=== PATIENT | female | born 1980 | race Caucasian/White ===

== ENCOUNTER 2016-08-09 14:09 | Emergency (ER) | payer OTHER ==
[2016-08-09 15:18] VITALS: BP 110/63
[2016-08-09] MEDS ORDERED: Ibuprofen TAB* 400 MG PO ONE (16:01)
--- NOTE | 2016-08-09 16:34 | RAD ---
Indication: Right rib pain after fall. Single view of the chest including dual energy PA views demonstrates no mediastinal shift. Heart is of normal size and configuration. Lung bryant appear clear. No pneumothorax is noted. IMPRESSION: No active cardiopulmonary disease is noted.
--- NOTE | 2016-08-09 16:42 | RAD ---
Indication: Rib pain after fall 4 views of the right ribs are reviewed. There is suggestion some irregularity and lucency at the tip of the right seventh rib in the area of pain. Nondisplaced fracture should BE considered. IMPRESSION: Likely nondisplaced fracture of the anterior right seventh rib.
--- NOTE | 2016-08-09 22:13 | UC ---
Nas Haynes Aidan, scribed for Jackie Starr MD on 08/09/16 at 1609 . Truncal Trauma HPI - HPI Summary HPI Summary: 36 y/o female presents to the Urgent Care with a complaint of acute, constant, moderate (5/10), right-sided lower rib cage pain that began 2 weeks ago after she slipped on ice and fell on her right side. Tylenol does not alleviate the pain, while pressure and sitting up aggravates it. Pt denies any hematuria, cough, or fever, and she is breathing normally. Lastly, she believes that she may be 1 month and requests a test. Previously, she has had 3 normal pregnancies. - History Of Current Complaint Chief Complaint: UCGeneralIllness Stated Complaint: RIB INJURY Time Seen by Provider: 08/09/16 15:43 Hx Obtained From: Patient Hx Last Menstrual Period: 06/08/16 Onset/Duration: Sudden Onset, Lasting Weeks, Still Present Onset Of Pain: Post Accident Severity Initially: Moderate Severity Currently: Moderate Pain Intensity: 5 Pain Scale Used: 0-10 Numeric Mechanism Of Injury: Fall From A Standing Position - slipped on ice Aggravating Factor(s): Movement - pressure on the right ribcage, sitting up Alleviating factor(s): Nothing - Tylenol did not alleviate pain Associated Signs And Symptoms: Positive: Chest Pain - right rib pain. 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 Lives: With Family Alcohol Use: None Substance Use Type: None Smoking Status (MU): Former Smoker Type: Cigarettes Have You Smoked in the Last Year: No - Immunization History Most Recent Influenza Vaccination: 04/2015 Most Recent Tetanus Shot: with this Most Recent Pneumonia Vaccination: never Review of Systems Constitutional: Negative Skin: Negative Eyes: Negative ENT: Negative Respiratory: Negative Cardiovascular: Negative, Other - right rib pain Gastrointestinal: Negative Genitourinary: Negative Motor: Negative Neurovascular: Negative Musculoskeletal: Arthralgia - right-sided ribcage pain Neurological: Negative Psychological: Negative All Other Systems Reviewed And Are Negative: Yes Physical Exam Triage Information Reviewed: Yes Appearance: Well-Appearing, Well-Nourished, Pain Distress Vital Signs: Initial Vital Signs Temp 99.4 F 08/09/16 15:13 Pulse 69 08/09/16 15:13 Resp 16 08/09/16 15:13 BP 110/63 08/09/16 15:13 Pulse Ox 100 08/09/16 15:13 Vital Signs Reviewed: Yes Eyes: Positive: Conjunctiva Clear ENT: Positive: Normal ENT inspection Neck: Positive: Supple Respiratory: Positive: Lungs clear, Normal breath sounds, No respiratory distress, Other: - right rib pain from 5-8 Cardiovascular: Positive: RRR, No Murmur, Pulses Normal, Brisk Capillary Refill Abdomen Description: Positive: Nontender, No Organomegaly, Soft. Negative: Distended, Guarding Bowel Sounds: Positive: Present Musculoskeletal: Positive: Strength Intact, ROM Intact, Other: - Lower ribs V- VIII on anterior axillary line, no bruising or crepitus Neurological: Positive: Alert, Muscle Tone Normal Psychological Exam: Normal Skin Exam: Normal Diagnostics - Radiology RIB XR Xray Interpretation: Positive (See Comments) - IMPRESSION: Likely nondisplaced fracture of the anterior right seventh rib. Radiology Interpretation Completed By: Radiologist CHEST XR Xray Interpretation: No Acute Changes - IMPRESSION: NO ACUTE CARDIOPULMONARY DISEASE Radiology Interpretation Completed By: Radiologist Truncal Trauma Course/Dx - Course Course Of Treatment: Rib x-ray indicated likely nondisplaced fracture of the anterior right seventh rib. test results were negative. - Differential Dx/Diagnosis Differential Diagnosis/HQI/PQRI: Chest Wall Contusion, Pneumothorax, Rib Fracture Provider Diagnoses: right 7th rib fracture Discharge - Discharge Plan Condition: Stable Disposition: HOME Prescriptions: HYDROcodone/ACETAMIN 5-325 MG* [Molena 5-325 TAB*] 1 tab PO Q4H PRN #18 tab MDD 6 PRN Reason: Pain Ibuprofen TAB* [Motrin TAB* 800 MG] 800 mg PO Q6H #30 tab Patient Education Materials: Rib Fracture (ED) Referrals: [facility] [Outside] The documentation as recorded by the scribe, Nas,Best accurately reflects the service I personally performed and the decisions made by me, Jackie Starr MD.
== END 2016-08-09 17:38 | disposition home or self-care (01) ==
LOC: UCEAST 14:09
DX: S22.31XA Fracture of one rib, right side, initial encounter for closed fracture (principal); W00.0XXA Fall on same level due to ice and snow, initial encounter; Y93.9 Activity, unspecified; Y92.9 Unspecified place or not applicable; Z87.891 Personal history of nicotine dependence; Z32.02 Encounter for pregnancy test, result negative
CPT/HCPCS: 71010; 81002; 81025; 87077; 87086; 87186; 99212; A9270-GY; G0463

== ENCOUNTER 2017-04-20 18:54 | Emergency (ER) | payer SELFPAY ==
[2017-04-20 19:24] VITALS: BP 127/62
--- NOTE | 2017-04-20 21:27 | UC ---
Sidney Haynes Nikita, scribed for Da Baird MD on 04/20/17 at 2003 . Dental HPI - HPI Summary HPI Summary: This patient is a 36 year old F presenting to [facility] with a chief complaint of L upper dental pain since 3-4 hours ago. The CC is described as a chipped tooth. The patient rates the pain 9/10 in severity. Symptoms aggravated by nothing. Symptoms alleviated by nothing. - History of Current Complaint Chief Complaint: UCDentalProblem Stated Complaint: DENTAL PAIN Time Seen by Provider: 04/20/17 19:53 Hx Obtained From: Patient Hx Last Menstrual Period: 04/01/17 Onset/Duration: Sudden Onset, Lasting Days, Still Present Severity: Severe Pain Intensity: 9 Pain Scale Used: 0-10 Numeric Aggravating Factor(s): Nothing Alleviating Factor(s): Nothing Related History: Other - chipped tooth - Allergies/Home Medications Allergies/Adverse Reactions: Allergies Allergy/AdvReac Type Severity Reaction Status Date / Time No Known Allergies Allergy Verified 04/20/17 19:24 Home Medications: Home Medications Ibuprofen TAB* [Advil TAB*] 800 mg PO ONCE PRN 04/20/17 [History Confirmed 04/20] PMH/Surg Hx/FS Hx/Imm Hx Endocrine History: Other Other Endocrine History: No DM Cardiovascular History: Other Other Cardiovascular History: No CAD, HTN - Surgical History Surgical History: None - Family History Known Family History: Positive: Hypertension - Social History Alcohol Use: None Substance Use Type: None Smoking Status (MU): Former Smoker Type: Cigarettes Have You Smoked in the Last Year: No - Immunization History Most Recent Influenza Vaccination: 04/2015 Most Recent Tetanus Shot: with this Most Recent Pneumonia Vaccination: never Review of Systems Constitutional: Other - no fever ENT: Dental Pain - L upper dental pain, chipped tooth All Other Systems Reviewed And Are Negative: Yes Physical Exam Triage Information Reviewed: Yes Appearance: Well-Appearing, Pain Distress - mild Vital Signs: Initial Vital Signs Temp 99.3 F 04/20/17 19:21 Pulse 73 04/20/17 19:21 Resp 16 04/20/17 19:21 BP 127/62 04/20/17 19:21 Pulse Ox 100 04/20/17 19:21 Vital Signs Reviewed: Yes Eye Exam: Normal ENT Exam: Normal Dental: Positive: Other: - L upper molar with severe decay that is tender to percussion, Gingival swelling Neck: Positive: Supple, Nontender Respiratory: Positive: Lungs clear, Normal breath sounds Cardiovascular: Positive: RRR Abdomen Description: Positive: Nontender, Soft Bowel Sounds: Positive: Present Musculoskeletal Exam: Normal Musculoskeletal: Positive: Strength Intact, ROM Intact Neurological Exam: Normal - normal, sensory/motor intact, A&O x3 Neurological: Positive: Alert Psychological Exam: Normal - affect/mood appropriate Skin: Positive: Other - warm, color reflects adequate perfusion, dry Dental Complaint Course/Dx - Course Course Of Treatment: This patient is a 36 year old F presenting to [facility] with a chief complaint of L upper dental pain since 3-4 hours ago. The CC is described as a chipped tooth. The patient rates the pain 9/10 in severity. Symptoms aggravated by nothing. Symptoms alleviated by nothing. Medications reviewed. Pt will be discharged. Pt is agreeable with this plan. - Differential Dx/Diagnosis Provider Diagnoses: DENTAL PAIN/INFECTION Discharge - Discharge Plan Condition: Stable Disposition: HOME Prescriptions: Penicillin VK 500 MG TAB(NF) [Penicillin VK 500 mg Tab] 500 mg PO QID #40 tab oxyCODONE/Acetamin 5/325 MG* [Percocet 5/325 TAB*] 1 tab PO Q4H PRN #20 tab MDD 6 PRN Reason: Pain Patient Education Materials: Toothache (ED) Referrals: [facility] [Outside] No Primary Care Phys,NOPCP [Primary Care Provider] - Additional Instructions: FOLLOW UP WITH YOUR DENTIST. GET RECHECKED FOR ANY WORSENING OF YOUR CONDITION OR QUESTIONS OR CONCERNS. The documentation as recorded by the Sidney fisher Nikita accurately reflects the service I personally performed and the decisions made by me, Da Baird MD.
== END 2017-04-20 20:30 | disposition home or self-care (01) ==
LOC: UCEAST 18:54
DX: K04.7 Periapical abscess without sinus (principal); K08.89 Other specified disorders of teeth and supporting structures
CPT/HCPCS: 99212; G0463

== ENCOUNTER 2017-06-15 12:04 | Emergency (ER) | payer OTHER ==
[2017-06-15] MEDS ORDERED: clonazePAM TAB(*) 1 MG PO ONE ×2 (12:31→17:05)
[2017-06-15] MEDS ORDERED: Ibuprofen TAB* 600 MG PO ONE (12:33)
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
[2017-06-15] MEDS ORDERED: clonazePAM TAB(*) 0.5 MG PO ONE (13:00)
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
[2017-06-15] MEDS ORDERED: clonazePAM TAB(*) 1 MG PO PRN (16:36)
[2017-06-15] MEDS ORDERED: clonazePAM TAB(*) 0.5 MG ONE (16:47)
[2017-06-15 17:18] VITALS: BP 134/74
== END 2017-06-15 17:15 | disposition home or self-care (01) ==
LOC: ED 12:04
DX: S00.93XA Contusion of unspecified part of head, initial encounter (principal); R51 Headache; M79.1 Myalgia; F17.210 Nicotine dependence, cigarettes, uncomplicated; Y09 Assault by unspecified means; Y93.9 Activity, unspecified; Y92.9 Unspecified place or not applicable
CPT/HCPCS: 36415; 70160; 70450; 86703; 99283; A9270-GY

== ENCOUNTER 2017-08-09 16:33 | Emergency (ER) | END 2017-08-09 16:54 | disposition left against medical advice (07) | LOC: MERGE 16:33 → UCEAST 16:33 | DX: N83.209 Unspecified ovarian cyst, unspecified side (principal); Z53.21 Procedure and treatment not carried out due to patient leaving prior to being seen by health care provider ==

== ENCOUNTER 2017-08-10 07:58 | Emergency (ER) | payer OTHER ==
[2017-08-10 08:18] VITALS: BP 111/48
--- NOTE | 2017-08-10 10:16 | RAD ---
INDICATION: Bilateral pelvic pain, history of ovarian cysts. COMPARISON: Comparison is made with a prior pelvic ultrasound from November 14, 2013. TECHNIQUE: Multiple real-time transvaginal images of the pelvis were obtained. FINDINGS: The uterus is retroverted and normal in size shape and echogenicity. The uterus measured 7.5 x 4.4 x 7.1 cm. The endometrial echo measured 0.6 cm in thickness. The right ovary measured 2.8 x 1.9 x 1.4 cm. The left ovary measured 4.0 x 3.0 x 1.8 cm. There is vascular flow within both ovaries. There is a complex cyst present within the left ovary measuring 1.8 x 1.3 x 1.9 cm. No free intraperitoneal fluid is seen. IMPRESSION: SMALL COMPLEX CYST WITHIN THE LEFT OVARY POSSIBLY REPRESENTING AN INVOLUTING FOLLICULAR CYST.
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
== END 2017-08-10 10:35 ==
LOC: UCEAST 07:58
DX: N83.292 Other ovarian cyst, left side (principal); R10.30 Lower abdominal pain, unspecified; Z32.02 Encounter for pregnancy test, result negative; K21.9 Gastro-esophageal reflux disease without esophagitis; F41.9 Anxiety disorder, unspecified; F32.9 Major depressive disorder, single episode, unspecified; F17.210 Nicotine dependence, cigarettes, uncomplicated
CPT/HCPCS: 76830; 81003; 84702; 99212; G0463

== ENCOUNTER 2017-11-12 11:09 | Emergency (ER) | payer SELFPAY ==
[2017-11-12] MEDS ORDERED: NS 0.9% 1000 ML* 2,000 ML IV ONE (11:42)
[2017-11-12] MEDS ORDERED: Metoclopramide IV* 5 MG/ML 2 ML VIAL IV ONE (11:42)
[2017-11-12 12:01] LABS: ABS Basophils 0 10^3/ul (0-0.2); ABS Eosinophils 0 10^3/ul (0-0.6); ABS Lymphocytes 1.3 10^3/ul (1.0-4.8); ABS Monocytes 0.3 10^3/ul (0-0.8); ABS Neutrophils 5.8 10^3/ul (1.5-7.7); ABS Nucleated RBC 0 10^3/ul; Eosinophil % 0.6 % (0-6); Hematocrit 36 % (35-47); Lymphocyte % 17.1 % (25-47); Mean Corpuscular HGB Conc 33 g/dl (31-36); Mean Corpuscular Hemoglobin 29 pg (27-31); Mean Corpuscular Volume 88 fL (80-97); Mean Platelet Volume 8.3 um3 (7.4-10.4); Nucleated Red Blood Cells % 0; Platelet Count 293 10^3/ul (150-450); Red Blood Count 4.08 10^6/ul (4.0-5.4); Red Cell Distribution Width 14 % (10.5-15); White Blood Count 7.5 10^3/ul (3.5-10.8)
[2017-11-12 12:19] LABS: EGFR Non-African American 108.3 (>60)
[2017-11-12 14:08] VITALS: BP 143/94
--- NOTE | 2017-11-13 08:22 | ED ---
Nausea/Vomiting/Diarrhea HPI - HPI Summary HPI Summary: Patient is a 37-year-old female presenting to the ED with chief complaint of nausea, vomiting, diarrhea for approximately 10 days. She states she was at [facility] 1 week ago and told it was viral. She continues to have nausea and vomiting, diarrhea is approximately once per day. She denies chance of , denies STDs, denies vaginal bleeding or discharge. She appears extremely lethargic on arrival and is asking for Klonopin. She states she takes Klonopin for seizures but during her time at [facility], they refused to prescribe her more. They state they changed the medication to Ativan which does not work for her. She states the reason she is having symptoms likely is due to being out of Klonopin. She denies any fevers, sweats, chills. She believes she may be dehydrated. She denies eating anything abnormal. She denies any travel. Denies chest pain or shortness of breath. - History of Current Complaint Chief Complaint: EDNauseaVomitDiarrh Stated Complaint: NAUSEA Time Seen by Provider: 11/12/17 11:16 Hx Obtained From: Patient Hx Last Menstrual Period: unsure ?: No Onset/Duration: Sudden Onset Timing: Constant Severity Initially: Mild Severity Currently: Mild Pain Intensity: 0 Pain Scale Used: 0-10 Numeric Aggravating Factor(s): Nothing Alleviating Factor(s): Nothing Diarrhea Frequency: Daily Diarrhea Duration: > 7 days - Risk Factors Influenza Risk Factors: Negative Surgical Obstruction Risk Factor(s): Negative - Allergies/Home Medications Allergies/Adverse Reactions: Allergies Allergy/AdvReac Type Severity Reaction Status Date / Time No Known Allergies Allergy Verified 04/20/17 19:24 Home Medications: Home Medications clonazePAM TAB(*) [KlonoPIN TAB(*)] 2 mg PO TID PRN 11/12/17 [History Confirmed 11/12/17] PMH/Surg Hx/FS Hx/Imm Hx Previously Healthy: Yes Endocrine/Hematology History: Denies: Hx Diabetes, Hx Thyroid Disease Cardiovascular History: Denies: Hx Hypertension Respiratory History: Denies: Hx Asthma, Hx Chronic Obstructive Pulmonary Disease (COPD) GI History: Denies: Hx Ulcer - Immunization History Hx Pertussis Vaccination: No Immunizations Up to Date: Unable to Obtain/Confirm Infectious Disease History: No Infectious Disease History: Denies: Hx Hepatitis, Hx Human Immunodeficiency Virus (HIV), Traveled Outside the [place] in Last 30 Days - Family History Known Family History: Positive: Hypertension, Seizure Disorder Negative: Respiratory Disease - Social History Occupation: Employed Full-time Lives: With Family Alcohol Use: None Hx Substance Use: Yes Substance Use Type: Reports: None Hx Tobacco Use: Yes Smoking Status (MU): Light Every Day Tobacco Smoker Type: Cigarettes Have You Smoked in the Last Year: No Review of Systems Constitutional: Negative Negative: Fever, Chills, Fatigue, Skin Diaphoresis Negative: Palpitations, Chest Pain Negative: Shortness Of Breath, Cough Positive: Vomiting, Diarrhea, Nausea Genitourinary: Negative Positive: no symptoms reported, see HPI Negative: Arthralgia, Myalgia Negative: Bruising Positive: Weakness Positive: Anxious All Other Systems Reviewed And Are Negative: Yes Physical Exam Triage Information Reviewed: Yes Vital Signs On Initial Exam: Initial Vitals Temp Pulse Resp BP Pulse Ox 99.3 F 99 17 133/83 97 11/12/17 11:16 11/12/17 11:16 11/12/17 11:16 11/12/17 11:16 11/12/17 11:16 Vital Signs Reviewed: Yes Appearance: Positive: Well-Appearing Head/Face: Positive: Normal Head/Face Inspection Eyes: Positive: EOMI, LOS, Conjunctiva Clear Neck: Positive: Supple, Nontender, No Lymphadenopathy Respiratory/Lung Sounds: Positive: Clear to Auscultation, Breath Sounds Present Cardiovascular: Positive: RRR, Pulses are Symmetrical in both Upper and Lower Extremities Musculoskeletal: Positive: Strength/ROM Intact Neurological: Positive: Speech Normal Psychiatric: Positive: Normal, Affect/Mood Appropriate AVPU Assessment: Alert Diagnostics - Vital Signs Vital Signs Temp Pulse Resp BP Pulse Ox 11/12/17 14:06 97.2 F 74 18 143/94 97 11/12/17 13:35 143/94 11/12/17 13:05 92 141/98 98 11/12/17 13:00 96 98 11/12/17 12:35 80 129/84 98 11/12/17 12:30 89 97 11/12/17 12:05 89 117/68 98 11/12/17 12:00 90 98 11/12/17 11:30 103 97 11/12/17 11:17 99 96 11/12/17 11:16 99.3 F 99 17 133/83 97 - Laboratory Lab Results: Lab Results 11/12/17 11/12/17 11/12/17 Range/Units 11:52 11:52 11:52 WBC 7.5 (3.5-10.8) 10^3/ul RBC 4.08 (4.0-5.4) 10^6/ul Hgb 12.0 (12.0-16.0) g/dl Hct 36 (35-47) % MCV 88 (80-97) fL MCH 29 (27-31) pg MCHC 33 (31-36) g/dl RDW 14 (10.5-15) % Plt Count 293 (150-450) 10^3/ul MPV 8.3 (7.4-10.4) um3 Neut % (Auto) 77.7 (38-83) % Lymph % (Auto) 17.1 L (25-47) % [place] % (Auto) 4.2 (0-7) % Eos % (Auto) 0.6 (0-6) % Baso % (Auto) 0.4 (0-2) % Absolute Neuts (auto) 5.8 (1.5-7.7) 10^3/ul Absolute Lymphs (auto) 1.3 (1.0-4.8) 10^3/ul Absolute Monos (auto) 0.3 (0-0.8) 10^3/ul Absolute Eos (auto) 0 (0-0.6) 10^3/ul Absolute Basos (auto) 0 (0-0.2) 10^3/ul Absolute Nucleated RBC 0 10^3/ul Nucleated RBC % 0 Sodium 140 (139-145) mmol/L Potassium 3.5 (3.5-5.0) mmol/L Chloride 110 (101-111) mmol/L Carbon Dioxide 24 (22-32) mmol/L Anion Gap 6 (2-11) mmol/L BUN 9 (6-24) mg/dL Creatinine 0.62 (0.51-0.95) mg/dL Est GFR ( Amer) 139.3 (>60) Est GFR (Non-Af Amer) 108.3 (>60) BUN/Creatinine Ratio 14.5 (8-20) Glucose 93 (70-100) mg/dL Lactic Acid 0.7 (0.5-2.0) mmol/L Calcium 9.0 (8.6-10.3) mg/dL Total Bilirubin 0.30 (0.2-1.0) mg/dL AST 11 L (13-39) U/L ALT 6 L (7-52) U/L Alkaline Phosphatase 69 (34-104) U/L Total Protein 6.1 L (6.4-8.9) g/dL Albumin 3.9 (3.2-5.2) g/dL Globulin 2.2 (2-4) g/dL Albumin/Globulin Ratio 1.8 (1-3) Result Diagrams: 11/12/17 11:52 11/12/17 11:52 Lab Statement: Any lab studies that have been ordered have been reviewed, and results considered in the medical decision making process. Naus/Vom/Diarrhea Course/Dx - Course Course Of Treatment: Patient's evaluated for nausea, vomiting, diarrhea 10 days. She states the nausea and vomiting continue approximately once every 2 days and diarrhea is a proximal he once per day. She feels she may be dehydrated because of this. She feels being out of Klonopin has made her have nausea, vomiting, and diarrhea symptoms and is requesting more. Labs are obtained and are unremarkable. She is given fluids and Reglan with relief of symptoms. She states she needs her Klonopin for anxiety, however she discussed with nurse that she takes Klonopin for seizures. I-STOP obtained which shows a refill of a 30 day supply of Klonopin on 10/23/17. I discussed that she still has 10 days left of her Klonopin dose. She states she "lost it." She was also given several days' supply of Ativan a few days ago I will discharge her with a diagnosis of nausea/vomiting/diarrhea. We will not refill her Klonopin. She will return for any worsening or changing symptoms. - Differential Dx/Diagnosis Provider Diagnoses: Nausea/Vomiting/Diarrhea Condition At Discharge: Stable Discharge - Sign-Out/Discharge Documenting (check all that apply): Discharge/Admit/Transfer - Discharge Plan Condition: Stable Disposition: HOME Prescriptions: Ondansetron ODT TAB* [Zofran 4 MG Odt TAB*] 4 mg PO Q6H PRN #12 tab.odt MDD 4 PRN Reason: Nausea Patient Education Materials: Weakness (ED) Referrals: No Primary Care Phys,NOPCP [Primary Care Provider] - Additional Instructions: Follow up with your PCP for medication refills I have give you wilan - Billing Disposition and Condition Condition: STABLE Disposition: HOME
== END 2017-11-12 14:06 | disposition home or self-care (01) ==
LOC: ED 11:09
DX: R11.2 Nausea with vomiting, unspecified (principal); R19.7 Diarrhea, unspecified; F17.210 Nicotine dependence, cigarettes, uncomplicated
CPT/HCPCS: 36415; 80053; 83605; 85025; 96374; 99283; J2765

== ENCOUNTER 2017-12-20 17:11 | Emergency (ER) | payer SELFPAY ==
[2017-12-20 17:36] VITALS: BP 127/62
--- NOTE | 2017-12-20 18:01 | ED ---
GI/ HPI - HPI Summary HPI Summary: 37-year-old female presents with umbilical pain for the past 3 days. She states that she feels a bulge there. She is is worse when she sits forward. She admits to some constipation. She notes nausea but denies vomiting. She's been able to keep liquids down. She has been taking ibuprofen which has been having pain. States the pain is best when she is laying down. She is also been wrapping the area since. No history of any belly surgeries. No history of hernia. No urinary symptoms. No fevers. - History of Current Complaint Hx Last Menstrual Period: 12/01/17 Pain Intensity: 7 <Selena Miller - Last Filed: 12/20/17 18:05> <Shakila Clark - Last Filed: 12/20/17 18:47> - History of Current Complaint Chief Complaint: UCAbdominalPain Time Seen by Provider: 12/20/17 17:46 Stated Complaint: ABD PAIN,NAUSEA - Allergy/Home Medications Allergies/Adverse Reactions: Allergies Allergy/AdvReac Type Severity Reaction Status Date / Time No Known Allergies Allergy Verified 12/20/17 17:38 Home Medications: Home Medications Calcium Carbonate [Tums] 1,500 mg PO ONCE 12/20/17 [History Confirmed 12/20/17] Ibuprofen 800 mg PO ONCE 12/20/17 [History Confirmed 12/20/17] PMH/Surg Hx/FS Hx/Imm Hx Endocrine/Hematology History: Denies: Hx Diabetes, Hx Thyroid Disease Cardiovascular History: Denies: Hx Hypertension Respiratory History: Denies: Hx Asthma, Hx Chronic Obstructive Pulmonary Disease (COPD) GI History: Denies: Hx Ulcer Infectious Disease History: No Infectious Disease History: Denies: Hx Hepatitis, Hx Human Immunodeficiency Virus (HIV), Traveled Outside the [place] in Last 30 Days - Family History Known Family History: Positive: Hypertension, Seizure Disorder Negative: Respiratory Disease - Social History Alcohol Use: None Hx Substance Use: Yes Substance Use Type: Reports: None Hx Tobacco Use: Yes Smoking Status (MU): Light Every Day Tobacco Smoker Type: Cigarettes Amount Used/How Often: 1/4 pk /day Have You Smoked in the Last Year: No <Selena Miller - Last Filed: 12/20/17 18:05> Review of Systems Negative: Fever Negative: Chest Pain Negative: Shortness Of Breath Positive: Abdominal Pain, Nausea All Other Systems Reviewed And Are Negative: Yes <Selena Miller - Last Filed: 12/20/17 18:05> Physical Exam Triage Information Reviewed: Yes Vital Signs On Initial Exam: Initial Vitals Temp Pulse Resp BP Pulse Ox 97.7 F 84 16 127/62 100 12/20/17 17:29 12/20/17 17:29 12/20/17 17:29 12/20/17 17:29 12/20/17 17:29 Vital Signs Reviewed: Yes Appearance: Positive: Well-Appearing Skin: Positive: Warm, Dry Head/Face: Positive: Normal Head/Face Inspection Eyes: Positive: Normal, Conjunctiva Clear ENT: Positive: Pharynx normal Respiratory/Lung Sounds: Positive: Clear to Auscultation, Breath Sounds Present Cardiovascular: Positive: Normal, RRR Abdomen Description: Positive: Nontender, Soft, Other: - hernia felt at umblicius when sits foward Bowel Sounds: Positive: Present Musculoskeletal: Positive: Normal Neurological: Positive: Normal Psychiatric: Positive: Normal <Selena Miller - Last Filed: 12/20/17 18:05> Vital Signs On Initial Exam: Initial Vitals Temp Pulse Resp BP Pulse Ox 97.7 F 84 16 127/62 100 12/20/17 17:29 12/20/17 17:29 12/20/17 17:29 12/20/17 17:29 12/20/17 17:29 <Shakila Clark - Last Filed: 12/20/17 18:47> Diagnostics - Vital Signs Vital Signs Temp Pulse Resp BP Pulse Ox 12/20/17 17:29 97.7 F 84 16 127/62 100 <Selena Miller - Last Filed: 12/20/17 18:05> - Vital Signs Vital Signs Temp Pulse Resp BP Pulse Ox 12/20/17 17:29 97.7 F 84 16 127/62 100 <Shakila Clark - Last Filed: 12/20/17 18:47> GIGU Course/Dx - Course Course Of Treatment: 37-year-old female presents with umbilical pain for the past 3 days. She states that she feels a bulge there. She is is worse when she sits forward. She admits to some constipation. She notes nausea but denies vomiting. She's been able to keep liquids down. She has been taking ibuprofen which has been having pain. States the pain is best when she is laying down. She is also been wrapping the area since. No history of any belly surgeries. No history of hernia. No urinary symptoms. No fevers. on exam nontender abdomen. when sits forward and bares down hernia felt above umblicius. no erythema noted to area. no sign of incarcerated. will have follow up with surgery. patient understand and agrees with plan. - Diagnoses Differential Diagnoses - Female: Gastritis, Incarcerated Hernia, Other - umbilicial hernia <Selean Miller - Last Filed: 12/20/17 18:05> <Shakila Clark - Last Filed: 12/20/17 18:47> - Diagnoses Provider Diagnoses: Umbilical hernia Discharge - Sign-Out/Discharge Documenting (check all that apply): Discharge/Admit/Transfer - Billing Disposition and Condition Condition: GOOD Disposition: Home <Selena Miller - Last Filed: 12/20/17 18:05> - Billing Disposition and Condition Condition: GOOD Disposition: Home <Shakila Clark - Last Filed: 12/20/17 18:47> - Discharge Plan Condition: Good Disposition: HOME Prescriptions: Ondansetron ODT TAB* [Zofran 4 MG Odt TAB*] 4 mg PO Q6H PRN #12 tab.odt PRN Reason: Nausea Patient Education Materials: Umbilical Hernia (ED) Referrals: Eric Douglas MD [Medical Doctor] - Additional Instructions: take zofran every 6 hours increase fiber, can add otc colace daily for constipation do not lift anything heavy Can take ibuprofen every 6 hours for pain Return to ED if develop any new or worsening symptoms Attestation Statement User Type: Provider - I was available for consult. This patient was seen by the NIYAH. The patient was not presented to, seen by, or examined by me. -Adelina <Shakila Clark - Last Filed: 12/20/17 18:47>
== END 2017-12-20 18:10 | disposition home or self-care (01) ==
LOC: UCEAST 17:11
DX: K42.9 Umbilical hernia without obstruction or gangrene (principal)
CPT/HCPCS: 99212; G0463

== ENCOUNTER 2018-02-14 06:15 | Day surgery (SDC) | payer SELFPAY ==
--- NOTE | 2018-02-08 15:26 | HP ---
CC: Dr. Garcia * PREOPERATIVE HISTORY AND PHYSICAL: DATE OF ADMISSION/SURGERY: 02/14/18 This patient is scheduled for same-day surgery by Dr. Douglas on Tuesday, . DATE OF PREOPERATIVE HISTORY AND PHYSICAL EXAMINATION: 02/08/18 ATTENDING SURGEON: Dr. Eric Douglas * (dictated by Brielle Lynch NP) CHIEF COMPLAINT: Umbilical hernia. HISTORY OF PRESENT ILLNESS: The patient is a 37-year-old female recently evaluated by Dr. Douglas with a 2-week history of "puffy" abdomen and pain in the umbilicus. She was at the [facility], treated with ibuprofen and Zofran due to associated nausea and was diagnosed with umbilical hernia and referred for surgical consultation. She reports provoking factors such as lifting and eating large meals and palliating factors are ibuprofen and lying supine. She feels that the hernia is getting bigger. Dr. Douglas examined the patient and reviewed the findings with her and has recommended open umbilical hernia repair with possible mesh; he described the nature of the surgical procedure, the rationale for the procedure, the relevant risks and benefits and today, I reviewed the expected postoperative care and recovery. The patient has had a chance to ask questions and stated that she understands the information and is satisfied with the answers given to her questions. She will sign surgical consent on the day of the surgery. PAST MEDICAL HISTORY: Anxiety and depression. PAST SURGICAL HISTORY: Oral surgery at age 11. MEDICATION: Prozac 20 mg p.o. daily in the morning. ALLERGIES: No known drug allergies. FAMILY HISTORY: No known anesthesia complications, bleeding tendencies, or clotting disorders. 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 She smokes approximately a half pack of cigarettes per day and is trying to quit; she denies the use of alcohol or other substances. REVIEW OF SYSTEMS: Constitutional: No fevers, chills, excessive fatigue, or weight loss. Endocrine: No diabetes or thyroid disease. Hematologic: No easy bruising or bleeding. Respiratory: No dyspnea on exertion. No chronic cough. She is trying to quit smoking. Cardiovascular: No anginal chest pain or palpitations. Gastrointestinal: No current nausea or vomiting. No diarrhea , GI bleeding, or constipation. Genitourinary: No dysuria. Musculoskeletal: No joint or back pain. Integumentary: No chronic rashes or skin changes. Neurologic: No headache or blurred vision. No areas of focal weakness. General: No history of deep vein thrombosis or pulmonary embolism. No previous anesthesia complications. No history of blood transfusions. PHYSICAL EXAMINATION GENERAL SURVEY: The patient is a 37-year-old female, well developed, well nourished, in no acute distress. VITAL SIGNS: Height 63 inches, weight 135 pounds, body mass index 23.9. Blood pressure 106/78, pulse 72 and regular, respiratory rate 18, temperature 97.8 tympanic. HEENT: Benign. NECK: Supple. No cervical lymphadenopathy. LUNGS: Breath sounds bilaterally clear and equal. HEART: Regular rate and rhythm. No murmurs or rubs appreciated. ABDOMEN: Active bowel sounds, soft, nondistended. No scars. Reduced umbilical hernia approximately 1 to 2 cm, tender. No other obvious masses or organomegaly. PELVIC: Exam deferred. RECTAL: Exam deferred. EXTREMITIES: Warm without edema or skin ulceration. NEUROLOGIC: Alert and oriented x3. Steady gait. SKIN: Warm, dry, intact. IMPRESSION: Umbilical hernia. PLAN: Same-day surgery admission to Dr. Douglas' service for 02/14/18 , for open umbilical hernia repair, possible mesh. SHILA LYNCH, CLIENT SUCCESS MANAGER [id number]/[facility] #: [id number] MTDD
[~2018-02-14 06:15] MED LIST: Buffered Lidocaine 0.9% SYRIN* 5 ML/SYR SYRINGE INTRADERM ONE; Famotidine IV* 10 MG/ML 2 ML (20 mg) IV ONE
[2018-02-14] MEDS ORDERED: Famotidine IV* 10 MG/ML 2 ML (20 mg) ONE (06:19)
[2018-02-14] MEDS ORDERED: ceFAZolin 2 GM PREMIX (*) 2 GM/50 ML BAG IVPB ONE (06:21)
[2018-02-14] MEDS ORDERED: ROPIVACAINE 5 MG/ML 30 ML BTL (0.5%) ONE (07:12)
[2018-02-14] MEDS ORDERED: Lidocaine 1% INJ* 10 MG/ML 30 ML SDV ONE (07:12)
[2018-02-14] MEDS ORDERED: Ketorolac INJ* 30 MG/ML 1 ML VIAL ONE (07:14)
[2018-02-14] MEDS ORDERED: Propofol* 10 MG/ML 20 ML BTL IV PUSH ONE ×2 (07:14→07:51)
[2018-02-14] MEDS ORDERED: fentaNYL* 50 MCG/ML 2 ML VIAL (100 MCG VIAL) ONE ×2 (07:14→09:08)
[2018-02-14] MEDS ORDERED: Midazolam* 1 MG/ML 10 ML VIAL (10 MG) ONE (07:14)
[2018-02-14] MEDS ORDERED: Lidocaine 2% PF * 5 ML VIAL ONE (07:14)
[2018-02-14] MEDS ORDERED: Ondansetron INJ* 2 MG/ML VIAL ONE (07:14)
[2018-02-14] MEDS ORDERED: Dexamethasone IV* 4 MG/ML 1 ML (4 MG) ONE (07:14)
[2018-02-14] MEDS ORDERED: KETAMINE HCL* 50 MG/ML 10 ML VIAL ONE (07:14)
[2018-02-14] MEDS ORDERED: Lidocain 1% EPI 1:100,000 * 30 ML MDV ONE (07:33)
[2018-02-14] MEDS ORDERED: Ondansetron INJ* 2 MG/ML VIAL IV PRN (08:03)
[2018-02-14] MEDS ORDERED: fentaNYL* 50 MCG/ML 2 ML VIAL (100 MCG VIAL) IV PRN (08:03)
[2018-02-14] MEDS ORDERED: Naloxone* 0.4 MG/ML 1 ML VIAL IV PRN (08:03)
--- NOTE | 2018-02-14 08:30 | OP ---
Operative Report - Blank - Operative Report Date of Operation: 02/14/18 Note: Brief Operative Note Preop Dx: umbilical hernia Postop Dx: same Procedure: open repair (primary) umbilical hernia Anesthesia: local MAC Surgeon: Misael Pie Maker: WESLEY Kaba Fluids: 750 ml RL EBL: none Specimen: none Drains: none Findings: dictated
[2018-02-14] MEDS ORDERED: oxyCODONE/Acetamin 5/325 MG* TAB ONE ×2 (09:08→09:49)
[2018-02-14] MEDS: oxyCODONE/Acetamin 5/325 MG* TAB PO PRN ×2 (09:10→09:50)
[2018-02-14 09:47] VITALS: BP 109/59
--- NOTE | 2018-02-15 21:42 | OP ---
DATE OF OPERATION: 02/14/18 - [facility] DATE OF : 80 SURGEON: Eric Douglas MD IT INFRASTRUCTURE SPECIALIST: WESLEY Diaz ANESTHESIOLOGIST: Dr. Johnson Sandhu. ANESTHESIA: Local MAC. PRE-OP DIAGNOSIS: Umbilical hernia. POST-OP DIAGNOSIS: Umbilical hernia. OPERATIVE PROCEDURE: Open repair of umbilical hernia. OPERATIVE FINDINGS: A less than 1 cm umbilical hernia defect with incarcerated fat. ESTIMATED BLOOD LOSS: Minimal. IV FLUIDS: 0.75 L of crystalloid. SPECIMENS: None. DRAINS: None. COMPLICATIONS: None. COUNTS: Instrument, needle, and sponge counts were correct. DESCRIPTION OF PROCEDURE: The patient was brought to the operating room and placed on the table supine. The patient had sequential compression devices placed in both lower extremities and intravenous sedation was administered. She was prepped and draped in the usual sterile fashion. She received appropriate intravenous antibiotics. Time-out was performed. Local anesthetic was infiltrated periumbilically and a curvilinear infraumbilical incision was created. Subcutaneous tissues were divided with cautery and sharp and blunt dissection. The umbilical stalk was dissected free from the anterior abdominal wall and the umbilical hernia defect was identified containing preperitoneal fat. This was reduced. The umbilical hernia defect measuring less than 1 cm was closed with 0 Ethibond suture of [id number] fashion. Umbilical stalk was reapproximated to the anterior abdominal wall with 3-0 Vicryl. Skin was closed with 4-0 Monocryl in subcuticular fashion. Steri-Strips were applied. The patient tolerated the procedure well and was awakened and transferred to recovery in stable condition. [id number]/[facility] #: [id number] [facility]
== END 2018-02-14 10:20 | disposition home or self-care (01) ==
LOC: OR 06:15
PROVIDERS: ATTEND Surgery
DX: K42.9 Umbilical hernia without obstruction or gangrene (principal); Z72.0 Tobacco use; F41.8 Other specified anxiety disorders
CPT/HCPCS: 81025; A9270-GY; J0690; J1100; J1885; J2250; J2405; J2704; J2795; J3010

== ENCOUNTER 2018-07-26 17:42 | Emergency (ER) | payer OTHER ==
[2018-07-26 18:41] LABS: Influenza A Molecular NEGATIVE (Negative); Influenza B Molecular NEGATIVE (Negative)
--- NOTE | 2018-07-26 19:19 | UC ---
UC General HPI - HPI Summary HPI Summary: PATIENT REPORTS FEELING UNWELL FOR ABOUT 5 DAYS. HAS HAD ABOUT 6 EPISODES OF VOMITING OVER THIS PERIOD OF TIME WITH THE LAST TIME BEING EARLIER TODAY. HAD ONE EPISODE OF WATERY STOOL YESTERDAY. REPORTS FEVER OF 101 INITIALLY BUT NONE IN THE PAST FEW DAYS. IS COMPLAINING OF A SIGNIFICANT HEADACHE AND FATIGUE. SHE ALSO REPORTS THAT SHE HAS DENTAL PAIN STEMMING FROM BROKEN TEETH ON BOTH HER UPPER AND LOWER RIGHT SIDE. SHE DENIES ANY COUGH OR CONGESTION. NO CHEST PAIN, SHORTNESS OF BREATH, SWEATS. - History of Current Complaint Chief Complaint: UCGeneralIllness Stated Complaint: HEADACHE, AND ABDOMINAL PAIN Time Seen by Provider: 07/26/18 18:28 Hx Obtained From: Patient, Family/Hooking Machine Operator - Hx Last Menstrual Period: [id number] Onset/Duration: Gradual Onset, Lasting Days, Still Present Timing: Constant Onset Severity: Moderate Current Severity: Moderate Pain Intensity: 7 Associated Signs & Symptoms: Positive: Dizziness, Diarrhea, Decreased Oral Intake, Fever, Headache, Nausea, Vomiting. Negative: Cough, Chest Pain - Allergy/Home Medications Allergies/Adverse Reactions: Allergies Allergy/AdvReac Type Severity Reaction Status Date / Time No Known Allergies Allergy Verified 07/26/18 18:03 PMH/Surg Hx/FS Hx/Imm Hx Psychological History: Depression - Surgical History Surgical History: Yes Surgery Procedure, Year, and Place: umbilical Hernia repair. ORAL SURGERY- WISDOM TEETH EXTRACTION - Family History Known Family History: Positive: Hypertension, Seizure Disorder Negative: Respiratory Disease - Social History Alcohol Use: None Substance Use Type: Marijuana Substance Use Comment - Amount & Last Used: 1 bowl Smoking Status (MU): Light Every Day Tobacco Smoker Type: Cigarettes Amount Used/How Often: 1/2 PPD X 2-3 YEARS Have You Smoked in the Last Year: No Household Exposure Type: Cigarettes - Immunization History Most Recent Influenza Vaccination: 04/2015 Most Recent Tetanus Shot: with this Most Recent Pneumonia Vaccination: never Review of Systems All Other Systems Reviewed And Are Negative: Yes Constitutional: Positive: Chills, Fatigue ENT: Positive: Dental Pain Respiratory: Positive: Negative Cardiovascular: Positive: Negative Gastrointestinal: Positive: Vomiting, Diarrhea, Nausea Neurological: Positive: Headache, Other - DIZZY Physical Exam Triage Information Reviewed: Yes Appearance: No Pain Distress, Well-Nourished, Ill-Appearing - MODERATE Vital Signs: Initial Vital Signs Temp 98.1 F 07/26/18 17:56 Pulse 52 07/26/18 17:56 Resp 14 07/26/18 17:56 BP 154/126 07/26/18 17:56 Pulse Ox 99 07/26/18 17:56 Laboratory Tests 07/26/18 18:29 Influenza A (Rapid) Negative Influenza B (Rapid) Negative Vital Signs Reviewed: Yes Eyes: Positive: Conjunctiva Clear ENT: Positive: Hearing grossly normal, Pharynx normal, TMs normal Neck: Positive: Supple, Nontender, No Lymphadenopathy Respiratory: Positive: Lungs clear, No respiratory distress, No accessory muscle use, Decreased breath sounds. Negative: Wheezing Cardiovascular: Positive: Bradycardia Abdomen Description: Positive: Soft Musculoskeletal: Positive: No Edema Neurological: Positive: Alert - PT ALERT BUT SEEMS SEDATED. SLIGHT SLURRING OF SPEECH Psychological: Positive: Normal Response To Family, Age Appropriate Behavior Skin: Negative: Rashes Course/Dx - Course Course Of Treatment: WHILE IN THE PATIENT'S BLOOD PRESSURE FOUND TO BE IN THE 80S OVER 40S. SHE STATES THIS IS NORMAL FOR HER. HEART RATE IN THE 50S. PATIENT SEEMS FATIGUED AND SOMEWHAT SEDATED. FLU SWAB NEGATIVE. GIVEN HER LOW BP AND PULSE AND OVERALL MALAISE/SEDATION HAVE ADVISED ER EVALUATION. PT OFFERED TRANSPORT TO THE ED BY AMBULANCE BUT DECLINES. ADVISED THAT BY NOT TRAVELING IN A MONITORED SETTING SHE COULD BE RISKING WORSENING OF HER CONDITION THAT COULD POSE A THREAT TO HER LIFE, HEALTH AND MEDICAL SAFETY. SHE VERBALIZES UNDERSTANDING AND CONTINUES TO DECLINE AMBULANCE TRANSFER. - Diagnoses Provider Diagnosis: Hypotension, Bradycardia - Physician Notifications Discussed Patient Care With: Seth Leigh Time Discussed With Above Provider: 19:25 Instructed by Provider To: MD Will See In ED Discharge - Sign-Out/Discharge Documenting (check all that apply): Patient Departure All imaging exams completed and their final reports reviewed: No Studies - Discharge Plan Condition: Stable Disposition: [facility] Patient Education Materials: Hypotension (ED), Bradycardia (ED) Referrals: No Primary Care Phys,NOPCP [Primary Care Provider] - Additional Instructions: FLU SWAB NEGATIVE. GO DIRECTLY TO THE [facility] [place] ED FROM HERE FOR FURTHER EVALUATION. YOUR BLOOD PRESSURE IS DANGEROUSLY LOW AND YOUR PULSE IS SLOW. YOU HAVE DECLINED TRANSFER TO THE ED BY AMBULANCE. BE ADVISED THAT BY NOT TRAVELING IN A MONITORED SETTING YOU COULD BE RISKING WORSENING OF YOUR CONDITION THAT COULD POSE A THREAT TO YOUR LIFE, HEALTH AND MEDICAL SAFETY. CALL THE NUMBER BELOW FOR ASSISTANCE IN ESTABLISHING WITH A PCP An additional resource available to assist in finding the appropriate physician for your health care needs is the [facility] (Preeti Erazo). You may contact them by calling [phone]. - Billing Disposition and Condition Condition: STABLE Disposition: Trans Higher Lvl of Care Fac
[2018-07-26 19:22] VITALS: BP 80/52
[2018-07-27 10:40] LABS: ABS Basophils 0 10^3/ul (0-0.2); ABS Eosinophils 0.2 10^3/ul (0-0.6); ABS Lymphocytes 2.3 10^3/ul (1.0-4.8); ABS Monocytes 0.5 10^3/ul (0-0.8); ABS Neutrophils 2.2 10^3/ul (1.5-7.7); ABS Nucleated RBC 0 10^3/ul; Eosinophil % 4.4 %; Hematocrit 36 % (35-47); Hemoglobin 12.1 g/dl (12.0-16.0); Lymphocyte % 44.6 %; Mean Corpuscular HGB Conc 34 g/dl (31-36); Mean Corpuscular Hemoglobin 31 pg (27-31); Mean Corpuscular Volume 90 fL (80-97); Mean Platelet Volume 9.3 fL (7.4-10.4); Nucleated Red Blood Cells % 0.2; Platelet Count 261 10^3/ul (150-450); Red Blood Count 3.95 10^6/ul (4.00-5.40); Red Cell Distribution Width 14 % (10.5-15); White Blood Count 5.3 10^3/ul (3.5-10.8)
[2018-07-27 11:30] LABS: Calcium 9.2 mg/dL (8.6-10.3); Potassium 4.1 mmol/L (3.5-5.0); Total Bilirubin 0.3 mg/dL (0.2-1.0)
[2018-07-27 11:36] LABS: Albumin/Globulin Ratio 1.9 (1-3); BUN/Creatinine Ratio 13.9 (8-20); EGFR African American 109.7 (>60); EGFR Non-African American 90.7 (>60); Globulin 2.1 g/dL (2-4); Total Protein 6.1 g/dL (6.4-8.9)
== END 2018-07-26 19:23 | disposition short-term general hospital (02) ==
LOC: UCEAST 17:42
DX: I95.9 Hypotension, unspecified (principal); R00.1 Bradycardia, unspecified; F17.210 Nicotine dependence, cigarettes, uncomplicated
CPT/HCPCS: 36415; 80053; 85025; 99212; G0463

== ENCOUNTER 2018-09-14 08:55 | Day surgery (SDC) | payer OTHER ==
[2018-09-14] MEDS ORDERED: Ondansetron INJ* 2 MG/ML VIAL IV ONE ×2 (09:19→11:38)
[2018-09-14] MEDS ORDERED: NS 0.9% 1000 ML** 1,000 ML IV ONE ×2 (09:19→11:50)
[2018-09-14] MEDS ORDERED: Ketorolac INJ* 30 MG/ML 1 ML VIAL IV PUSH ONE (09:30)
--- NOTE | 2018-09-14 09:34 | ED ---
Nausea/Vomiting/Diarrhea HPI - HPI Summary HPI Summary: Patient is a 38-year-old female who presents emergency department for nausea, vomiting, diarrhea, abdominal pain 4 days. Patient states numerous family members have been sick at home with similar symptoms. Patient notes a history of anxiety for which she takes Klonopin on a daily basis. Patient states she has not been able to take Klonopin loss 4 days. Patient states she has had withdrawal seizures in the past. She also notes nasal congestion, cough. She denies fever, chills, urinary symptoms, blood in stool or vomit. Otherwise denies past medical history. Symptoms are moderate in severity. No current modifying factors. - History of Current Complaint Chief Complaint: EDNauseaVomitDiarrh Stated Complaint: STOMACH BUG SINCE TUESDAY PER PT Time Seen by Provider: 09/14/18 09:19 Hx Obtained From: Patient Hx Last Menstrual Period: [id number] Pain Intensity: 10 - Allergies/Home Medications Allergies/Adverse Reactions: Allergies Allergy/AdvReac Type Severity Reaction Status Date / Time No Known Allergies Allergy Verified 07/26/18 18:03 PMH/Surg Hx/FS Hx/Imm Hx Previously Healthy: Yes Endocrine/Hematology History: Denies: Hx Diabetes, Hx Thyroid Disease Cardiovascular History: Denies: Hx Hypertension Respiratory History: Denies: Hx Asthma, Hx Chronic Obstructive Pulmonary Disease (COPD) GI History: Denies: Hx Ulcer Sensory History: Denies: Hx Contacts or Glasses, Hx Hearing Aid Opthamlomology History: Denies: Hx Contacts or Glasses Psychiatric History: Reports: Hx Depression - SEASONAL - Surgical History Surgery Procedure, Year, and Place: umbilical Hernia repair. ORAL SURGERY- WISDOM TEETH EXTRACTION Hx Anesthesia Reactions: No - Immunization History Date of Influenza Vaccine: 02/2018 Immunizations Up to Date: Yes Infectious Disease History: No Infectious Disease History: Denies: Hx Hepatitis, Hx Human Immunodeficiency Virus (HIV), Traveled Outside the [place] in Last 30 Days - Family History Known Family History: Positive: Hypertension, Seizure Disorder Negative: Respiratory Disease - Social History Occupation: Unemployed Lives: With Family Alcohol Use: Occasionally Hx Substance Use: Yes Substance Use Type: Reports: Marijuana Substance Use Comment - Amount & Last Used: 1 bowl Hx Tobacco Use: Yes Smoking Status (MU): Light Every Day Tobacco Smoker Type: Cigarettes Amount Used/How Often: 1/2 PPD X 2-3 YEARS Have You Smoked in the Last Year: No Review of Systems Constitutional: Negative Negative: Fever, Chills Eyes: Negative Positive: Nasal Discharge Cardiovascular: Negative Negative: Palpitations, Chest Pain Positive: Cough. Negative: Shortness Of Breath Positive: Abdominal Pain, Vomiting, Diarrhea, Nausea Genitourinary: Negative Negative: dysuria Skin: Negative Neurological: Negative All Other Systems Reviewed And Are Negative: Yes Physical Exam Triage Information Reviewed: Yes Vital Signs On Initial Exam: Initial Vitals Temp Pulse Resp BP Pulse Ox 96.6 F 98 18 128/93 98 09/14/18 09:04 09/14/18 09:04 09/14/18 09:04 09/14/18 09:04 09/14/18 09:04 Vital Signs Reviewed: Yes Appearance: Positive: Pain Distress - Pt. lying in bed on her side, appears uncomfortable but nontoxic. Skin: Positive: Warm, Dry Head/Face: Positive: Normal Head/Face Inspection Eyes: Positive: Normal, EOMI Neck: Positive: Supple Respiratory/Lung Sounds: Positive: Clear to Auscultation, Breath Sounds Present Cardiovascular: Positive: Normal, RRR Abdomen Description: Positive: Other: - Abd. is soft with diffuse tenderness in all quadrants with guarding. Musculoskeletal: Positive: Normal, Strength/ROM Intact Neurological: Positive: Normal, CN Intact II-III Psychiatric: Positive: Affect/Mood Appropriate Diagnostics - Vital Signs Vital Signs Temp Pulse Resp BP Pulse Ox 09/14/18 09:04 96.6 F 98 18 128/93 98 - Laboratory Result Diagrams: 09/14/18 09:37 09/14/18 09:37 Lab Statement: Any lab studies that have been ordered have been reviewed, and results considered in the medical decision making process. Naus/Vom/Diarrhea Course/Dx - Course Course Of Treatment: Pt. present presenting for diffuse abd. pain, V/D. She is afebrile with stable VS. Pt. also c/o myalgias, cough and nasal congestion. Pt. actively vomiting in ED. IV was started and pt. given zofra, toradol, and fluids. Labs shows a leukocytosis with a left shift. CMP shows low mag, K, cl, and elevated gap. Pt. continue to vomiting, CT abd./pelvis ordered to evaluate for potential cause. IMPRESSION: 1. THE APPENDIX IS FLUID-FILLED AND DILATED RAISING THE POSSIBILITY OF APPENDICITIS. RECOMMEND CLINICAL CORRELATION. 2. HEPATIC STEATOSIS. 1145: I spoke with in store demonstrator surgery, Dr. Loera, who recommends admission to hospitalist service and he will consult. He does not recommend antibx at this point. I spoke with Dr. Baxter, hospitalist, and they will admit to their service. - Differential Dx/Diagnosis Differential Diagnoses - Female: Appendicitis, Bowel Obstruction, Diverticulitis , Pancreatitis, Ectopic , Vomiting, Diarrhea Provider Diagnosis: Uncontrollable nausea and vomiting, Abdominal pain, Hypokalemia, Hypomagnesemia Discharge - Sign-Out/Discharge Documenting (check all that apply): Patient Departure Patient Received Moderate/Deep Sedation with Procedure: No - Discharge Plan Condition: Stable Disposition: ADMITTED TO [facility] Referrals: No Primary Care Phys,NOPCP [Primary Care Provider] - - Billing Disposition and Condition Condition: STABLE Disposition: Admitted to [facility]
[2018-09-14 09:43] LABS: ABS Basophils 0 10^3/ul (0-0.2); ABS Eosinophils 0.1 10^3/ul (0-0.6); ABS Lymphocytes 0.6 10^3/ul (1.0-4.8); ABS Monocytes 0.5 10^3/ul (0-0.8); ABS Neutrophils 15.9 10^3/ul (1.5-7.7); ABS Nucleated RBC 0 10^3/ul; Eosinophil % 0.5 %; Hematocrit 41 % (33-41); Hemoglobin 13.9 g/dL (12.0-16.0); Lymphocyte % 3.6 %; Mean Corpuscular HGB Conc 34 g/dL (31-36); Mean Corpuscular Hemoglobin 30 pg (27-31); Mean Corpuscular Volume 88 fL (80-97); Mean Platelet Volume 8.1 fL (7.4-10.4); Nucleated Red Blood Cells % 0; Platelet Count 367 10^3/uL (150-450); Red Blood Count 4.59 10^6 /uL (3.70-4.87); Red Cell Distribution Width 13 % (10.5-15); White Blood Count 17.2 10^3/uL (3.5-10.8)
[2018-09-14 10:02] LABS: ALT 29 U/L (7-52); AST 33 U/L (13-39); Albumin 4.6 g/dL (3.2-5.2); Albumin/Globulin Ratio 1.7 (1-3); Alkaline Phosphatase 81 U/L (34-104); Anion Gap 16 mmol/L (2-11); BUN/Creatinine Ratio 16.7 (8-20); Blood Urea Nitrogen 11 mg/dL (6-24); C Reactive Protein 16.45 mg/L (<8.01); CO2 Carbon Dioxide 21 mmol/L (22-32); Calcium 9.2 mg/dL (8.6-10.3); Chloride 103 mmol/L (101-111); EGFR African American 121.3 (>60); EGFR Non-African American 100.2 (>60); Globulin 2.7 g/dL (2-4); Glucose 148 mg/dL (70-100); Magnesium 1.6 mg/dL (1.9-2.7); Sodium 140 mmol/L (135-145); Total Protein 7.3 g/dL (6.4-8.9)
[2018-09-14 10:06] LABS: HCG Pregnancy < 0.60 mIU/mL
[2018-09-14] MEDS ORDERED: LORazepam INJ* 2 MG/ML 1 ML VIAL IV PUSH ONE (10:17)
[2018-09-14] MEDS ORDERED: Iohexol 300* (CONTRAST) 10 ML SDV IV ONE (10:24)
[2018-09-14] MEDS ORDERED: PROCHLORPERAZINE INJ 5 MG/ML 2 ML VIAL IV ONE (10:56)
[2018-09-14] MEDS ORDERED: Magnesium Oxide TAB* 400 MG PO ONE (11:39)
[2018-09-14] MEDS ORDERED: Potassium Chlor TAB* 20 MEQ TAB.ER PO ONE (11:39)
[2018-09-14] MEDS ORDERED: Morphine 4 MG/ML VIAL (1 ml) 4 MG/ML VIAL IV ONE (11:49)
[2018-09-14] MEDS ORDERED: Piperacillin/Tazobac ADVAN(*) 3.375 GM in NS 0.9% 100 ML* 100 ML IVPB ONE (13:34)
[2018-09-14] MEDS ORDERED: Zosyn per Pharmacy* NOTE FOLLOW UP SCH (14:00)
[2018-09-14] MEDS ORDERED: Magnesium Sulfate 1 GM IV* 1 GM/100 ML BAG IV ONE (14:55)
[2018-09-14] MEDS: KCL 20 MEQ/100 ML IVPREMIX* 20 MEQ/100 ML BAG IV SCH ×2 (15:07→17:09)
--- NOTE | 2018-09-14 15:41 | CONS ---
CONSULTATION REPORT: DATE OF CONSULT: 09/14/18 REQUESTING PHYSICIAN: WESLEY Priest. REASON FOR CONSULT: Diffuse abdominal pain and nausea and vomiting. HISTORY OF PRESENT ILLNESS: Isis Bone is a 38-year-old female with past medical history of depression and anxiety, who presented to the ED with 4 days of nausea, vomiting, and diffuse abdominal pain. The patient has been unable to keep down any food or drink. She has not had anything to eat and has not taken any of her medications during this time. Her abdominal pain has not been alleviated or aggravated by any factors. She has been vomiting about 10 times per day for the last 4 days and reports that the color is yellow to green. She denies hematemesis or coffee-ground emesis. She began having fevers and chills about 2 days ago in addition to body aches. In the emergency department, the patient received Ativan, morphine, 2 L of normal saline and Zofran. The patient reports the Zofran has not helped her nausea. In addition, she is feeling more anxious. She denies chest pain, shortness of breath. She has not had bowel movement in [address] abdomen and pelvis demonstrates fluid-filled and dilated appendix. The hospitalist team was asked to evaluate the patient. The patient reports she has been urinating less frequently than usual. She has not had a bowel movement in the last 4 days. She additionally reports that her lower extremities have been aching for the last 4 days. PAST MEDICAL HISTORY: Generalized anxiety disorder, depression. The patient denies history of IBD, hypertension, coronary artery disease. PAST SURGICAL HISTORY: The patient had ventral hernia repair in March 2018. FAMILY HISTORY: Father at age 62 of laryngeal cancer. Mother is living and potentially has heart disease, although the patient is unsure. SOCIAL HISTORY: The patient denies drug and alcohol use. The patient has been smoking half pack per day for "a few years." REVIEW OF SYSTEMS: All pertinent positives and negatives are in the HPI. All other systems are negative. PHYSICAL EXAM: General: Young female, lying in hospital bed in position , appearing in moderate distress. Head: Normocephalic, atraumatic. Eyes: PERRL and sclerae anicteric. ENT: Lips appear dry. Neck: Neck is supple and without JVD. Cardio: Regular rate and rhythm without murmurs, rubs, or gallops. Respiratory: Lungs are clear to auscultation without adventitious lung sounds. Abdomen: Abdomen is soft. Tenderness to palpation throughout. Tenderness is worse in the right lower quadrant. Tenderness throughout the abdomen is preferred to right lower quadrant. Abdomen is nondistended. The patient has positive drawer sign, positive Rovsing sign, positive psoas sign. Bowel sounds are hypoactive x4 quadrants. Extremities: No edema or clubbing. Neuro: Cranial nerves II through XII are grossly intact. The patient is alert and oriented x3. Psych: Mood and affect are euthymic. The patient denies suicidal ideations. DIAGNOSTIC STUDIES/LAB DATA: CT abdomen and pelvis today, impression: "The appendix is fluid filled and dilated, raising the possibility of appendicitis. Recommend clinical correlation. Hepatic steatosis." White blood cell 17.2, hemoglobin 13.9, hematocrit 41, platelet count 367. Sodium 140, potassium 3.0, chloride 103, carbon dioxide 21, BUN 11, creatinine 0.66, glucose 148, magnesium 1.6. AST 33, ALT 29, alk phos 81. CRP 16.45, lipase 20. ASSESSMENT AND PLAN: The patient is a 38-year-old female with past medical history of anxiety and depression, who presents to the emergency department with nausea, vomiting and diffuse abdominal pain x4 days. The hospital medicine team was asked to evaluate the patient. 1. Nausea, vomiting, abdominal pain. The patient has a leukocytosis and positive Rovsing sign, which is consistent with imaging suggesting appendicitis. Additionally, it is likely the patient has a secondary peritonitis. The general surgeons have been consulted to admit the patient. Hospital medicine will follow along with the patient's admission. The patient has been placed on n.p.o. diet and take the patient for surgery today. IV Zosyn has been initiated. The patient is currently on normal saline in the emergency department and will continue. 2. Hypokalemia. The patient had a potassium of 3.0 in the emergency department. It is likely due to her significant number of episodes of vomiting. Recommend replacing potassium intravenously. 3. Disposition. Per General Surgery. Thank you for allowing us to participate in the care of this patient. WESLEY MAI [id number]/[facility] #: [id number] [facility]
--- NOTE | 2018-09-14 15:41 | HP ---
AMENDED REPORT NOW INCLUDES DESIGNATED COSIGNER DATE OF ADMISSION: 09/14/2018. This patient was seen in the [facility] Emergency Department on August. ATTENDING SURGEON: Dr. Hakeem Loera * (dictated by Brielle Lynch NP). CHIEF COMPLAINT: Worsening abdominal pain. HISTORY OF PRESENT ILLNESS: The patient is a 38-year-old female who states that she has not been feeling well for about two weeks with intermittent nausea , vomiting, diarrhea, and body aches. On Tuesday of this week, she started experiencing abdominal pain, mostly in the right lower quadrant associated with vomiting. She states that there are other family members at home with similar symptoms. She has not had a bowel movement since Tuesday. She has been mostly on a liquid diet at home and has not had anything to eat or drink since yesterday. She denies any dysuria. Her last menstrual period was one week ago. CAT scan of the abdomen and pelvis in the emergency department revealed an appendix that was fluid filled and dilated, raising the possibility of appendicitis. Her white blood cell count was elevated at 17.2, potassium was low at 3.0, CRP was 16.45. PAST MEDICAL HISTORY: Significant for anxiety and depression. PAST SURGICAL HISTORY: Open umbilical hernia repair [address] Douglas. OB HISTORY: 4, para 4, last menstrual period one week ago. MEDICATIONS: 1. Fluoxetine 60 mg daily. 2. Klonopin as needed for anxiety. ALLERGIES: No known drug allergies. FAMILY HISTORY: No known anesthesia complications, bleeding tendencies, or clotting disorders. SOCIAL HISTORY: She is not currently working. She was smoking a half-a-pack of cigarettes per day up until Tuesday when she quit. She drinks occasional alcohol and denies the use of other substances. REVIEW OF SYSTEMS: Constitutional: Low grade fever. No chills. No excessive fatigue or weight loss. General: No previous anesthesia complications. No bleeding tendencies. No history of deep vein thrombosis or pulmonary embolism. Endocrine: No diabetes or thyroid disease. Respiratory: She is a smoker who quit four days ago. No shortness of breath or chronic cough. Cardiovascular: No anginal chest pain or palpitations. Gastrointestinal: As described in history of present illness. Genitourinary: No dysuria. Musculoskeletal: No back or joint pain, but she complains of some body aches. Neurologic: No headache or blurred vision. No areas of focal weakness. Hematologic: No easy bruising or bleeding. PHYSICAL EXAMINATION GENERAL: The patient is a 38-year-old female, overweight, well-developed, complaining of abdominal pain, but in no acute distress. VITAL SIGNS: Height 62 inches, weight 150 pounds, body mass index 27. Blood pressure 139/80, pulse 80 and regular, respiratory rate 17, temperature 99.1, O2 saturation on room air 100 percent. SKIN: Warm, dry, intact. HEENT: Benign. NECK: Supple. No cervical lymphadenopathy. LUNGS: Breath sounds bilaterally clear and equal. HEART: Regular rate and rhythm. No murmurs or rubs. ABDOMEN: Hypoactive bowel sounds, obese, soft, most tender to palpation in the right lower quadrant at McBurney's point. Some tenderness in the periumbilical and left lower quadrant. Mild guarding, mild rebound tenderness, mild percussion tenderness. Well-healed umbilical incision. No obvious masses or organomegaly. EXTREMITIES: Warm without edema or skin ulcerations. PELVIC: Exam deferred. RECTAL: Exam deferred. NEUROLOGIC: Alert and oriented times three. IMPRESSION: Acute appendicitis. Dr. Loera also assessed the patient and agreed with the impression. PLAN: To the operating room today for laparoscopic appendectomy. The nature of the surgical procedure, the rationale for the procedure, the relevant risks and benefits, and the typical postoperative care and recovery were discussed with the patient. Her questions were answered and verbal consent was obtained. TIME SPENT: Sixty minutes with greater than 50 percent in [id number] history taking, physical examination, and coordination of care. SHILA LYNCH NP [id number]/[facility] #: [id number] MAY[facility]
[2018-09-14] MEDS ORDERED: Midazolam* 1 MG/ML 5 ML VIAL (5 MG) ONE (15:43)
[2018-09-14] MEDS ORDERED: fentaNYL* 50 MCG/ML 2 ML VIAL (100 MCG VIAL) ONE ×2 (15:43→18:18)
[2018-09-14] MEDS ORDERED: Atracurium* 10 MG/ML 10 ML VIAL ONE (15:43)
[2018-09-14] MEDS ORDERED: Dexamethasone IV* 4 MG/ML 1 ML (4 MG) ONE (16:37)
[2018-09-14] MEDS ORDERED: Famotidine IV* 10 MG/ML 2 ML (20 mg) ONE (16:37)
[2018-09-14] MEDS ORDERED: DiMENhydriNATE IV* 50 MG/ML VIAL ONE (16:37)
[2018-09-14] MEDS ORDERED: Morphine 4 MG/ML VIAL (1 ml) 4 MG/ML VIAL ONE (16:56)
[2018-09-14] MEDS ORDERED: Bupivacaine 0.25% W/EPI* 10 ML SDV ONE (18:01)
[2018-09-14] MEDS ORDERED: oxyCODONE/Acetamin 5/325 MG* TAB PO PRN (18:37)
[2018-09-14] MEDS ORDERED: Morphine 4 MG/ML VIAL (1 ml) 4 MG/ML VIAL IV PRN (18:37)
[2018-09-14] MEDS ORDERED: PROCHLORPERAZINE INJ 5 MG/ML 2 ML VIAL IV PRN (18:37)
[2018-09-14] MEDS ORDERED: fentaNYL* 50 MCG/ML 2 ML VIAL (100 MCG VIAL) IV PRN (18:37)
[2018-09-14] MEDS ORDERED: DiMENhydriNATE IV* 50 MG/ML VIAL IV PUSH PRN (18:37)
[2018-09-14] MEDS ORDERED: Naloxone* 0.4 MG/ML 1 ML VIAL IV PRN (18:37)
[2018-09-14] MEDS ORDERED: Ketorolac INJ* 30 MG/ML 1 ML VIAL ONE (18:44)
[2018-09-14] MEDS ORDERED: Propofol* 10 MG/ML 20 ML BTL ONE ×2 (18:44→18:46)
[2018-09-14] MEDS ORDERED: Lidocaine 2% PF * 5 ML VIAL ONE (18:45)
[2018-09-14] MEDS ORDERED: Glycopyrrolate IV* 0.2 MG/ML 1 ML VIAL ONE (18:45)
[2018-09-14] MEDS ORDERED: hydrALAZINE IV* 20 MG/ML VIAL ONE (18:52)
[2018-09-14] MEDS ORDERED: Metoprolol Tartrate IV* 1 MG/ML 5 ML VIAL ONE (18:52)
[2018-09-14 19:47] VITALS: BP 129/83
--- NOTE | 2018-09-15 00:24 | OP ---
DATE OF OPERATION: 09/14/18 - [facility] DATE OF : 80 SURGEON: Hakeem Loera MD BAR TACKER: None. ANESTHESIOLOGIST: Dr. Chandler. ANESTHESIA: General anesthetic, local infiltration. PRE-OP DIAGNOSIS: Acute appendicitis. POST-OP DIAGNOSIS: Acute appendicitis. OPERATIVE PROCEDURE: Laparoscopic appendectomy. DESCRIPTION OF PROCEDURE: The patient was supine on the operative table. After adequate general anesthetic, compression stockings, Elio Hugger warmer and intravenous antibiotics, the abdomen was prepped with antiseptic, draped in a sterile fashion. Local infiltrative anesthesia was administered. A small umbilical incision was created. Blunt port cannula was placed under direct vision. Abdomen was insufflated with carbon dioxide. Additional cannulae, 5 mm left lower quadrant, left midabdomen were placed through small stab wounds under direct vision. The appendix was swollen and dilated over the distal half , a little inflamed. There was no purulence. There was no gangrene or perforation. The small bowel was all normal. Tubes and ovaries were grossly normal. The appendix was tented upward. The base of the appendix was divided with a single firing of Endo-JAIME stapler with 60 mm trujillo load and then the mesoappendix with a single firing of an Endo-JAIME stapler with a 45 mm fernández load. The appendix was placed in retrieval bag and brought out through the umbilical site. Hemostasis was again confirmed and the cannulae were removed. Pneumoperitoneum allowed to escape. The umbilical fascia was closed with 0 Vicryl, skin with 5-0 Vicryl, followed by Steri-Strips. She tolerated the procedure well, was brought to Recovery Room in good condition. COMPLICATIONS: No complications. DRAINS: No drains. PATHOLOGIC SPECIMEN: Appendix. COUNTS: Sponge and instrument counts were correct. ESTIMATED BLOOD LOSS: Less than 30 mL. [id number]/[facility] #: [id number] [facility]
== END 2018-09-14 15:41 | disposition home or self-care (01) ==
LOC: ED 08:55 → OR 15:41
PROVIDERS: ATTEND Surgery
DX: D3A.020 Benign carcinoid tumor of the appendix (principal); R10.31 Right lower quadrant pain; R11.2 Nausea with vomiting, unspecified; R19.7 Diarrhea, unspecified; F41.8 Other specified anxiety disorders; Z72.0 Tobacco use
CPT/HCPCS: 36415; 74177; 80053; 83690; 83735; 84702; 85025; 86140; 88304; 88341; 88342; 88360; 99283; C1776; J0360; J0780; J1100; J1240; J1885; J2060; J2250; J2270; J2405; J2543; J2704; J3010; J3475; J3480; J3490; Q9967

== ENCOUNTER 2018-11-21 08:04 | Emergency (ER) | payer OTHER ==
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
[2018-11-21] MEDS ORDERED: FLUoxetine CAP* 20 MG PO ONE (09:00)
[2018-11-21 09:17] LABS: ABS Basophils 0.1 10^3/ul (0-0.2); ABS Eosinophils 0.1 10^3/ul (0-0.6); ABS Lymphocytes 1.7 10^3/ul (1.0-4.8); ABS Monocytes 0.6 10^3/ul (0-0.8); ABS Neutrophils 6.5 10^3/ul (1.5-7.7); Eosinophil % 1.5 %; Hematocrit 39 % (35-47); Hemoglobin 13.1 g/dL (12.0-16.0); Lymphocyte % 19.1 %; Mean Corpuscular HGB Conc 34 g/dL (31-36); Mean Corpuscular Hemoglobin 30 pg (27-31); Mean Corpuscular Volume 90 fL (80-97); Nucleated Red Blood Cells % 0.2; Platelet Count 313 10^3/uL (150-450); Red Blood Count 4.34 10^6 /uL (3.70-4.87); Red Cell Distribution Width 14 % (10.5-15); White Blood Count 9.1 10^3/uL (3.5-10.8)
[2018-11-21 09:21] LABS: INR 0.93 (0.82-1.09)
[2018-11-21 09:43] LABS: ALT 20 U/L (7-52); AST 16 U/L (13-39); Albumin 4.6 g/dL (3.2-5.2); Albumin/Globulin Ratio 1.9 (1-3); Alkaline Phosphatase 66 U/L (34-104); Anion Gap 7 mmol/L (2-11); BUN/Creatinine Ratio 22.2 (8-20); Blood Urea Nitrogen 20 mg/dL (6-24); C Reactive Protein < 1.00 mg/L (<8.01); CO2 Carbon Dioxide 27 mmol/L (22-32); Calcium 9.9 mg/dL (8.6-10.3); Chloride 105 mmol/L (101-111); EGFR African American 84.8 (>60); EGFR Non-African American 70.1 (>60); Globulin 2.4 g/dL (2-4); Glucose 91 mg/dL (70-100); Sodium 139 mmol/L (135-145)
[2018-11-21 09:49] LABS: HCG Pregnancy < 0.60 mIU/mL
[2018-11-21 10:21] LABS: Urine Appearance Clear; Urine Bilirubin Negative (Negative); Urine Blood Negative (Negative); Urine Color Yellow; Urine Glucose Negative (Negative); Urine Ketones Negative (Negative); Urine Nitrite Negative (Negative); Urine Protein Negative (Negative); Urine Urobilinogen Negative (Negative)
[2018-11-21 10:23] LABS: Alcohol < 10 mg/dL (<10)
[2018-11-21 10:39] LABS: Urine Benzodiazepine Screen Presumptive Positive (None Detect); Urine Opiates Screen None Detected (None Detect)
[2018-11-21] MEDS ORDERED: Iohexol 300* (CONTRAST) 10 ML SDV IV ONE (11:31)
[2018-11-21] MEDS ORDERED: clonazePAM TAB(*) 1 MG PO ONE (13:20)
[2018-11-21 14:06] VITALS: BP 102/48
[2018-11-21 16:39] LABS: Hepatitis C Antibody Negative (Negative)
[2018-11-21 22:20] LABS: Hepatitis B Surface Antigen Negative (Negative)
== END 2018-11-21 14:06 ==
LOC: ED 08:04
DX: T76.21XA Adult sexual abuse, suspected, initial encounter (principal); T76.11XA Adult physical abuse, suspected, initial encounter; T71.9XXA Asphyxiation due to unspecified cause, initial encounter; F17.210 Nicotine dependence, cigarettes, uncomplicated; F32.9 Major depressive disorder, single episode, unspecified; Y92.039 Unspecified place in apartment as the place of occurrence of the external cause
CPT/HCPCS: 36415; 70491; 80053; 80074; 80307; 80320; 81003; 84702; 85025; 85610; 86140; 99284; A9270-GY; G0480; Q9967

== ENCOUNTER 2019-03-04 14:53 | Emergency (ER) | payer SELFPAY ==
[2019-03-04 15:57] LABS: ABS Basophils 0.1 10^3/ul (0-0.2); ABS Eosinophils 0.1 10^3/ul (0-0.6); ABS Lymphocytes 1.9 10^3/ul (1.0-4.8); ABS Monocytes 0.6 10^3/ul (0-0.8); Eosinophil % 1.1 %; Hematocrit 39 % (35-47); Hemoglobin 13.4 g/dL (12.0-16.0); Lymphocyte % 21.8 %; Mean Corpuscular HGB Conc 35 g/dL (31-36); Mean Corpuscular Hemoglobin 31 pg (27-31); Mean Corpuscular Volume 89 fL (80-97); Mean Platelet Volume 9.1 fL (7.4-10.4); Platelet Count 277 10^3/uL (150-450); Red Blood Count 4.35 10^6 /uL (3.70-4.87); Red Cell Distribution Width 13 % (10-15); White Blood Count 8.6 10^3/uL (3.5-10.8)
[2019-03-04 16:03] LABS: INR 1.04 (0.82-1.09)
[2019-03-04 16:13] LABS: Albumin 4.3 g/dL (3.2-5.2); Calcium 9.6 mg/dL (8.6-10.3); Magnesium 1.9 mg/dL (1.9-2.7); Total Bilirubin 0.3 mg/dL (0.2-1.0)
[2019-03-04 16:19] LABS: Albumin/Globulin Ratio 1.9 (1-3); BUN/Creatinine Ratio 16.9 (8-20); EGFR African American 111.5 (>60); EGFR Non-African American 92.1 (>60); Globulin 2.3 g/dL (2-4); Total Protein 6.6 g/dL (6.4-8.9)
[2019-03-04] MEDS ORDERED: clonazePAM TAB(*) 1 MG PO ONE ×2 (16:37→17:45)
[2019-03-04 16:45] LABS: Potassium 3.2 mmol/L (3.5-5.0)
[2019-03-04 17:53] VITALS: BP 148/100
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
== END 2019-03-04 17:53 | disposition home or self-care (01) ==
LOC: ED 14:53
DX: R56.9 Unspecified convulsions (principal); F17.210 Nicotine dependence, cigarettes, uncomplicated; Z79.899 Other long term (current) drug therapy
CPT/HCPCS: 36415; 80053; 83605; 83735; 85025; 85610; 93005; 99282; A9270-GY

== ENCOUNTER 2019-03-31 15:05 | Emergency (ER) | payer SELFPAY ==
[2019-03-31 15:44] VITALS: BP 115/80
--- NOTE | 2019-03-31 16:20 | UC ---
Complaint Female HPI - HPI Summary HPI Summary: Pt presents with c/o gradual onset of low back, pelvic pain, cramping that began 1-2 days ago. Pt currently has menstrual period. Pt denies fever, chills or unusual vaginal discharge. Pt denies urinary symptoms of frequency and urgency. 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 Pt does have concern for STD as she has new sexual partner and has been sexually active in the last 2 weeks and not using condom. - History Of Current Complaint Chief Complaint: UCGU Stated Complaint: BURNING URINATION Time Seen by Provider: 03/31/19 15:56 Hx Obtained From: Patient Hx Last Menstrual Period: having it now ?: No Onset/Duration: Gradual Onset, Lasting Days, Still Present Timing: Intermittent Severity Initially: Mild Severity Currently: Mild Pain Intensity: 7 Character: Dull, Cramping Aggravating Factor(s): Nothing Alleviating Factor(s): Nothing Associated Signs And Symptoms: Positive: Back Pain - Risk Factors Ectopic Risk Factor: Negative Ovarian Torsion Risk Factor: Reproductive Age - Allergies/Home Medications Allergies/Adverse Reactions: Allergies Allergy/AdvReac Type Severity Reaction Status Date / Time No Known Allergies Allergy Verified 03/31/19 15:46 Home Medications: Home Medications ALPRAZolam TAB* [Xanax TAB*] 0.25 mg PO Q6H PRN 03/31/19 [History Confirmed 06/07] PMH/Surg Hx/FS Hx/Imm Hx Previously Healthy: Yes - Surgical History Surgical History: Yes Surgery Procedure, Year, and Place: umbilical Hernia repair. ORAL SURGERY- WISDOM TEETH EXTRACTION. appendectomy 09/05. - Family History Known Family History: Positive: Hypertension, Seizure Disorder Negative: Respiratory Disease - Social History Occupation: Unemployed Lives: [facility] - pt states she is living in a "half way house" Alcohol Use: Weekly Substance Use Type: Marijuana Substance Use Comment - Amount & Last Used: denies Smoking Status (MU): Former Smoker Type: Cigarettes Amount Used/How Often: 1/2 PPD X 2-3 YEARS Have You Smoked in the Last Year: No Household Exposure Type: Cigarettes - Immunization History Most Recent Influenza Vaccination: 04/2015 Most Recent Tetanus Shot: with this Most Recent Pneumonia Vaccination: never Vaccination Up to Date: No Review of Systems All Other Systems Reviewed And Are Negative: Yes Constitutional: Positive: Negative Skin: Positive: Negative Eyes: Positive: Negative ENT: Positive: Negative Respiratory: Positive: Negative Cardiovascular: Positive: Negative Gastrointestinal: Positive: Abdominal Pain Genitourinary: Positive: Negative Motor: Positive: Negative Neurovascular: Positive: Negative Musculoskeletal: Positive: Negative Neurological: Positive: Negative Psychological: Positive: Negative Is Patient Immunocompromised?: No Physical Exam Triage Information Reviewed: Yes Appearance: Well-Appearing Vital Signs: Initial Vital Signs Temp 98.2 F 03/31/19 15:36 Pulse 74 03/31/19 15:36 Resp 16 03/31/19 15:36 BP 115/80 03/31/19 15:36 Pulse Ox 99 03/31/19 15:36 Vital Signs Reviewed: Yes Eye Exam: Normal ENT Exam: Normal Dental Exam: Normal Neck exam: Normal Respiratory: Positive: No respiratory distress Cardiovascular Exam: Normal Abdominal Exam: Normal Abdomen Description: Positive: Nontender Musculoskeletal Exam: Normal Neurological Exam: Normal Psychological Exam: Normal Skin Exam: Normal Complaint Female Dx - Differential Dx/Diagnosis Differential Diagnosis/HQI/PQRI: Sexually Transmitted Disease, Urinary Tract Infection Provider Diagnosis: Pelvic pain Discharge ED - Sign-Out/Discharge Documenting (check all that apply): Patient Departure All imaging exams completed and their final reports reviewed: No Studies - Discharge Plan Condition: Stable Disposition: HOME Patient Education Materials: Pelvic Pain in Women (ED) Referrals: Member Zohaib AMAYA [facility] Provider[facility] TYPE[facility] - [facility] - Billing Disposition and Condition Condition: STABLE Disposition: Home
[2019-04-02 13:15] LABS: Chlamydia trachomatis NAA Negative (Negative); Neisseria gonorrhoeae (GC) NAA Negative (Negative)
== END 2019-03-31 16:35 | disposition home or self-care (01) ==
LOC: UCEAST 15:05
DX: R10.2 Pelvic and perineal pain (principal); M54.5 Low back pain; Z87.891 Personal history of nicotine dependence
CPT/HCPCS: 81003; 84702; 87491; 87591; 99211; G0463

== ENCOUNTER 2019-04-06 13:10 | Emergency (ER) | payer SELFPAY ==
[2019-04-06 13:58] LABS: Urine Appearance Clear; Urine Bilirubin Negative (Negative); Urine Blood Negative (Negative); Urine Color Straw; Urine Glucose Negative (Negative); Urine Ketones Negative (Negative); Urine Nitrite Negative (Negative); Urine Protein Negative (Negative); Urine Specific Gravity 1.006 (1.010-1.030); Urine Urobilinogen Negative (Negative)
[2019-04-06] MEDS ORDERED: Ibuprofen TAB* 800 MG PO ONE (16:02)
[2019-04-06] MEDS ORDERED: Azithromycin TAB* 250 MG PO ONE (16:34)
[2019-04-06] MEDS ORDERED: Lidocaine 1% MPF ** 5 ML VIAL IM ONE (16:34)
[2019-04-06] MEDS ORDERED: cefTRIAXone VIAL(*) 250 MG VIAL IM ONE (16:34)
[2019-04-06 17:14] VITALS: BP 173/92
--- NOTE | 2019-04-06 17:41 | ED ---
GI/ HPI - HPI Summary HPI Summary: Pt. is a 38 y.o female who presents to the ER for ongoing dysuria for two weeks. Pt. seen recently in and had negative urine culture and gonorrhea and chlamydia. Pt. denies fever, abd. pain, flank pain, N/V, vaginal discharge. Pt. does not she used a new laundry detergent and since has noted irritation with urination and pain with wiping. Pt. also notes recent new sex partner and is concerned for STIs. Pt. also notes her PCP retired and she has been out of her xanax and Prozac. Sxs are mild in severity. No current modifying factors. - History of Current Complaint Chief Complaint: EDUrogenitalProblems Time Seen by Provider: 04/06/19 15:37 Stated Complaint: BACK/KIDNEY PAIN PER PT Hx Obtained From: Patient Hx Last Menstrual Period: having it now Pain Intensity: 3 - Allergy/Home Medications Allergies/Adverse Reactions: Allergies Allergy/AdvReac Type Severity Reaction Status Date / Time No Known Allergies Allergy Verified 04/06/19 13:17 Home Medications: Home Medications Acetaminophen/Pamabrom [Midol Caplet] 1 tab PO DAILY PRN 04/06/19 [History Confirmed 04/06/19] Ibuprofen TAB* [Advil TAB*] 400 mg PO Q6H PRN 04/06/19 [History Confirmed ] PMH/Surg Hx/FS Hx/Imm Hx Previously Healthy: Yes Endocrine/Hematology History: Denies: Hx Diabetes, Hx Thyroid Disease Cardiovascular History: Denies: Hx Hypertension Respiratory History: Denies: Hx Asthma, Hx Chronic Obstructive Pulmonary Disease (COPD) GI History: Denies: Hx Ulcer History: Denies: Hx Renal Disease Sensory History: Denies: Hx Contacts or Glasses, Hx Hearing Aid Opthamlomology History: Denies: Hx Contacts or Glasses Psychiatric History: Reports: Hx Depression - SEASONAL, Hx Substance Abuse - hx DWAI, was smoking marijuana and driving per pt - Surgical History Surgery Procedure, Year, and Place: umbilical Hernia repair. ORAL SURGERY- WISDOM TEETH EXTRACTION. appendectomy 09/05. Hx Anesthesia Reactions: No - Immunization History Date of Influenza Vaccine: 02/2018 Infectious Disease History: No Infectious Disease History: Denies: Hx Hepatitis, Hx Human Immunodeficiency Virus (HIV), Traveled Outside the [place] in Last 30 Days - Family History Known Family History: Positive: Hypertension, Seizure Disorder, Non-Contributory Negative: Respiratory Disease - Social History Occupation: Unemployed Lives: With Family Alcohol Use: Weekly Hx Substance Use: Yes Substance Use Type: Reports: Marijuana Substance Use Comment - Amount & Last Used: denies Hx Tobacco Use: Yes Smoking Status (MU): Former Smoker Type: Cigarettes Amount Used/How Often: 1/2 PPD X 2-3 YEARS Have You Smoked in the Last Year: No Review of Systems Constitutional: Negative Negative: Fever ENT: Negative Cardiovascular: Negative Respiratory: Negative Gastrointestinal: Negative Positive: dysuria. Negative: discharge, flank pain Skin: Negative Neurological: Negative All Other Systems Reviewed And Are Negative: Yes Physical Exam Triage Information Reviewed: Yes Vital Signs On Initial Exam: Initial Vitals Temp Pulse Resp BP Pulse Ox 97.6 F 116 18 159/103 98 04/06/19 13:12 04/06/19 13:12 04/06/19 13:12 04/06/19 13:12 04/06/19 13:12 Vital Signs Reviewed: Yes Appearance: Positive: Well-Appearing - Pt. sitting up in bed in NAD. Skin: Positive: Warm, Dry Head/Face: Positive: Normal Head/Face Inspection Eyes: Positive: Normal, EOMI Neck: Positive: Supple Respiratory/Lung Sounds: Positive: Clear to Auscultation, Breath Sounds Present Cardiovascular: Positive: Normal, RRR Abdomen Description: Positive: Nontender, Soft. Negative: CVA Tenderness (R), CVA Tenderness (L) Pelvic Exam: Positive: Other - External exam only performed with pt.'s nurse, Kinjal. Vulva mildly erythematous. No lesions or discharge noted. Neurological: Positive: Normal, CN Intact II-III Psychiatric: Positive: Affect/Mood Appropriate Procedures - Sedation Patient Received Moderate/Deep Sedation with Procedure: No Diagnostics - Vital Signs Vital Signs Temp Pulse Resp BP Pulse Ox 04/06/19 17:14 98.4 F 108 18 173/92 98 04/06/19 16:58 173/92 04/06/19 16:36 168/97 04/06/19 16:06 108 150/90 97 04/06/19 16:00 103 98 04/06/19 15:37 108 97 04/06/19 15:36 106 157/98 96 04/06/19 13:12 97.6 F 116 18 159/103 98 - Laboratory Lab Results: Lab Results 04/06/19 Range/Units 13:46 Urine Color Straw Urine Appearance Clear Urine pH 7.0 (5-9) Ur Specific Triplett 1.006 L (1.010-1.030) Urine Protein Negative (Negative) Urine Ketones Negative (Negative) Urine Blood Negative (Negative) Urine Nitrate Negative (Negative) Urine Bilirubin Negative (Negative) Urine Urobilinogen Negative (Negative) Ur Leukocyte Esterase Negative (Negative) Urine Glucose Negative (Negative) Lab Statement: Any lab studies that have been ordered have been reviewed, and results considered in the medical decision making process. GIGU Course/Dx - Course Course Of Treatment: Pt. with ongoing dysuria. She does note new laundry detergent which may be causing sxs. Advised to d/c. Pt. concerned for STIs given new partner, will prophylactically tx with zithromax and rocephin. Pt. concerned she needs her medications refilled. I called pt.'s pharmacy and verified that she has a prozac rx to [facility]. [facility] reviewed and patient had 90 tablets of lorazepam filled on March 13 and 10 tablets of alprazolam on . Advised patient she will need to call her family doctor today for further prescriptions. [facility] also [facility] as [facility]. Patient discharged home follow-up with PCP. To return to the ER if symptoms change or worsen. Patient understands and agrees with plan. - Diagnoses Differential Diagnoses - Female: STD, Urinary Tract Infection, Vaginitis Provider Diagnoses: Dysuria Discharge ED - Sign-Out/Discharge Documenting (check all that apply): Patient Departure - Discharge Plan Condition: Good Disposition: HOME Patient Education Materials: Dysuria (ED) Referrals: [facility] [Outside] Member Zohaib AMAYA [Primary Care Provider] - Additional Instructions: Please call your PCP or the [facility] for a close follow up appointment Stop using current laundry detergent Return to ER if symptoms change or worsen - Billing Disposition and Condition Condition: GOOD Disposition: Home
== END 2019-04-06 17:14 | disposition home or self-care (01) ==
LOC: ED 13:10
DX: R30.0 Dysuria (principal); Z87.891 Personal history of nicotine dependence
CPT/HCPCS: 81003; 96372; 99282; A9270-GY; J0696